=== PATIENT | male | born 2000 | race Hispanic/Latino ===

== ENCOUNTER 2021-02-10 02:11 | Emergency (ER) | payer OTHER ==
[~2021-02-10] VITALS: Ht 160 cm; Wt 61.7 kg
== END 2021-02-10 02:23 | disposition home or self-care (01) ==
LOC: ER 02:16
DX: H60.92 Unspecified otitis externa, left ear (principal); E11.9 Type 2 diabetes mellitus without complications
CPT/HCPCS: 99282

== ENCOUNTER 2021-09-16 08:24 | Inpatient (IN) | payer OTHER ==
[2021-09-16] VITALS (22 sets, daily range): BP systolic 84–106; BP diastolic 41–66
[~2021-09-16] VITALS: Ht 160 cm; Wt 61.7 kg
[2021-09-16] MEDS ORDERED: ONDANSETRON HCL INJ 2MG/ML 2ML 2 MG/ML VIAL IV STA (08:57)
[2021-09-16] MEDS ORDERED: SODIUM CHLORIDE 0.9% 1000ML 1,000 ML IV STA ×2 (08:57→09:03)
[2021-09-16 09:16] LABS: BASOPHILS # (AUTO) 0.1 (0.0-0.1); BASOPHILS % 0.3 % (0.0-1.0); EOSINOPHILS % 0.1 % (0.0-6.0); HEMATOCRIT 50.1 % (38.2-49.6); HEMOGLOBIN 16.7 g/dL (14.0-18.0); LYMPHOCYTES # (AUTO) 1.6 (1.0-3.2); LYMPHOCYTES % 8.7 % (18.0-39.1); MEAN CORPUSCULAR HEMOGLOBIN 29.7 pg (28-32); MEAN CORPUSCULAR HGB CONC 33.3 g/dL (31-35); MONOCYTES # (AUTO) 0.9 (0.2-0.8); MONOCYTES % 4.9 % (4.4-11.3); NEUTROPHILS # (AUTO) 15.3 (2.1-6.9); NEUTROPHILS % 84.9 % (38.7-80.0); PLATELET COUNT 271 x10e3/uL (140-360); RED BLOOD COUNT 5.63 x10e6/uL (4.3-5.7)
[2021-09-16 09:36] LABS: ALBUMIN 4.6 g/dL (3.5-5.0); ALBUMIN/GLOBULIN RATIO 1.1 (0.8-2.0); ANION GAP 30.8 mmol/L (8-16); CALCIUM 10.1 mg/dL (8.4-10.2); CREATININE, SERUM 1.25 mg/dL (0.72-1.25); MAGNESIUM 2.1 MG/DL (1.3-2.1); POTASSIUM 4.8 mmol/L (3.5-5.1)
[2021-09-16] MEDS ORDERED: POTASSIUM CHLORIDE 20MEQ/100ML 200 ML IV PRN (10:00)
[2021-09-16] MEDS ORDERED: MAGNESIUM SULF 1GRAM/DEXTROSE 100 ML IV PRN (10:00)
[2021-09-16] MEDS ORDERED: INSULIN REGULAR, HUMAN 3ML VL 100 UNIT in SODIUM CHLORIDE 0.9% 99 ML IV SCH ×2 (10:00)
[2021-09-16] MEDS ORDERED: INSULIN REGULAR, HUMAN 100 UNIT/1 ML IV ONE (10:00)
[2021-09-16] MEDS ORDERED: DEXTROSE 5%/0.45% SOD CHL 1,000 ML IV SCH (10:00)
[2021-09-16 10:03] LABS: CREATINE KINASE 57 IU/L (30-200)
[2021-09-16 10:19] LABS: CLARITY,URINE CLEAR (CLEAR); COLOR,URINE YELLOW (YELLOW); KETONES,URINE 2+ (NEGATIVE); LEUKOCYTE ESTERASE ,URINE NEGATIVE (NEGATIVE); NITRITE,URINE NEGATIVE (NEGATIVE); PROTEIN,URINE DIPSTICK 1+ (NEGATIVE); URINE UROBILINOGEN 0.2 mg/dL (0.2 - 1)
[2021-09-16] MEDS ORDERED: ONDANSETRON HCL INJ 2MG/ML 2ML 2 MG/ML VIAL IV PRN ×2 (10:30→12:00)
[2021-09-16 10:35] LABS: ABG PCO2 25 mmHg (35-45); ABG PH 7.08 (7.35-7.45); ABG PO2 126 mmHg (80-105)
[2021-09-16 10:36] LABS: ABG HCO3 8 mmol/L (22-26); ABG TCO2 8
[2021-09-16 10:37] LABS: BACTERIA,URINE RARE /HPF; EPITHELIAL CELLS,URINE RARE /LPF; WBC,URINE (MAN) 0-5 /HPF (0-5)
[2021-09-16 10:46] LABS: AMPHETAMINES SCREEN,URINE NEGATIVE (NEGATIVE); BENZODIAZEPINES SCREEN,URINE NEGATIVE (NEGATIVE); PHENCYCLIDINE SCREEN,URINE NEGATIVE (NEGATIVE)
[2021-09-16] MEDS: SODIUM CHLORIDE 0.9% 1000ML 1,000 ML IV SCH ×3 (10:58→15:38)
[2021-09-16] MEDS ORDERED: ACETAMINOPHEN 325 MG TAB PO PRN (12:00)
[2021-09-16] MEDS ORDERED: SIMETHICONE 80 MG CHEW PO PRN (12:00)
[2021-09-16] MEDS ORDERED: BENZONATATE 100 MG CAP PO PRN (12:00)
[2021-09-16] MEDS ORDERED: HYDRALAZINE HCL 20 MG/ML VIAL IV PRN (12:00)
[2021-09-16] MEDS ORDERED: TRAMADOL HCL 50 MG TAB PO PRN (12:00)
[2021-09-16] MEDS ORDERED: MELATONIN 5 MG TABLET PO PRN (12:00)
[2021-09-16] MEDS ORDERED: DOCUSATE SODIUM 100 MG CAP PO PRN (12:00)
[2021-09-16] MEDS ORDERED: LIDOCAINE 4% PATCH TP PRN (12:00)
[2021-09-16] MEDS ORDERED: ALBUTEROL/IPRATROPIUM 3 ML NEB NEB PRN (12:00)
[2021-09-16] MEDS ORDERED: DEXTROSE 50% SYRINGE 50 ML IV PRN ×2 (12:00→17:45)
[2021-09-16] MEDS ORDERED: DIPHENHYDRAMINE HCL 25 MG CAP PO PRN (12:00)
[2021-09-16] MEDS ORDERED: BASAGLAR K100 UNIT/1 SC (13:56)
[2021-09-16] MEDS ORDERED: NOVOLOG100 UNIT/1 SC (13:56)
[2021-09-16] MEDS ORDERED: BASAGLAR K100 UNIT/1 (13:56)
[2021-09-16 14:17] LABS: ANION GAP 16.1 mmol/L (8-16); CALCIUM 7.6 mg/dL (8.4-10.2); CREATININE, SERUM 0.82 mg/dL (0.72-1.25); MAGNESIUM 1.8 MG/DL (1.3-2.1); POTASSIUM 4.1 mmol/L (3.5-5.1)
[2021-09-16] MEDS: ENOXAPARIN SOD INJ 40 MG/0.4 ML SYR SC SCH (17:27)
[2021-09-16 17:39] LABS: ANION GAP 11.8 mmol/L (8-16); CALCIUM 7.6 mg/dL (8.4-10.2); CREATININE, SERUM 0.8 mg/dL (0.72-1.25); MAGNESIUM 1.7 MG/DL (1.3-2.1); POTASSIUM 3.8 mmol/L (3.5-5.1)
[2021-09-16] MEDS: INSULIN REGULAR, HUMAN 3ML VL 100 UNIT in SODIUM CHLORIDE 0.9% 100 ML IV SCH ×4 (17:50→21:00)
[2021-09-17] VITALS (21 sets, daily range): BP systolic 87–124; BP diastolic 48–78
[2021-09-17] MEDS: INSULIN REGULAR, HUMAN 3ML VL 100 UNIT in SODIUM CHLORIDE 0.9% 100 ML IV SCH ×2 (03:00)
[2021-09-17 04:55] LABS: BASOPHILS % 0.2 % (0.0-1.0); EOSINOPHILS # (AUTO) 0.1 (0.0-0.4); EOSINOPHILS % 1.2 % (0.0-6.0); HEMATOCRIT 39.6 % (38.2-49.6); HEMOGLOBIN 13.4 g/dL (14.0-18.0); LYMPHOCYTES # (AUTO) 3.2 (1.0-3.2); LYMPHOCYTES % 27.2 % (18.0-39.1); MEAN CORPUSCULAR HEMOGLOBIN 29.3 pg (28-32); MEAN CORPUSCULAR HGB CONC 33.8 g/dL (31-35); MEAN CORPUSCULAR VOLUME 86.7 fL (81-99); MONOCYTES # (AUTO) 1.2 (0.2-0.8); MONOCYTES % 9.8 % (4.4-11.3); NEUTROPHILS # (AUTO) 7.3 (2.1-6.9); NEUTROPHILS % 61.2 % (38.7-80.0); PLATELET COUNT 250 x10e3/uL (140-360); RED BLOOD COUNT 4.57 x10e6/uL (4.3-5.7)
[2021-09-17 05:16] LABS: ALBUMIN 3.3 g/dL (3.5-5.0); ALBUMIN/GLOBULIN RATIO 1.1 (0.8-2.0); ANION GAP 9.5 mmol/L (8-16); CALCIUM 10.7 mg/dL (8.4-10.2); CREATININE, SERUM 0.8 mg/dL (0.72-1.25); POTASSIUM 3.5 mmol/L (3.5-5.1)
[2021-09-17 05:50] LABS: CHOL/HDL RATIO 2.7 (3.9-4.7); MAGNESIUM 1.9 MG/DL (1.3-2.1); PHOSPHORUS 2.7 MG/DL (2.3-4.7)
[2021-09-17 06:10] LABS: THYROID STIMULATING HORMONE 2.112 uIU/mL (0.350-4.940)
[2021-09-17] MEDS: PANTOPRAZOLE SOD 40 MG TABEC PO SCH ×2 (07:28→07:30)
[2021-09-17] MEDS: AMOXICILLIN 250 MG CAP PO SCH ×2 (12:10→22:00)
[2021-09-17] MEDS ORDERED: INSULIN LISPRO 100 UNIT/1 ML 3ML VIAL SQ ONE (14:15)
[2021-09-17] MEDS: INSULIN LISPRO 100 UNIT/1 ML 3ML VIAL SQ SCH ×3 (16:03→21:30)
[2021-09-17] MEDS: ENOXAPARIN SOD INJ 40 MG/0.4 ML SYR SC SCH (16:54)
[2021-09-17] MEDS ORDERED: INSULIN LISPRO 100 UNIT/1 ML 3ML VIAL SQ SCH (17:00)
[2021-09-17] MEDS ORDERED: INSULIN GLARGINE 100 UNITS/ML VIAL SQ SCH ×2 (21:00)
[2021-09-18] VITALS (17 sets, daily range): BP systolic 89–117; BP diastolic 49–76
[2021-09-18] MEDS: AMOXICILLIN 250 MG CAP PO SCH ×2 (06:45→14:43)
[2021-09-18] MEDS: PANTOPRAZOLE SOD 40 MG TABEC PO SCH (08:04)
[2021-09-18] MEDS: INSULIN LISPRO 100 UNIT/1 ML 3ML VIAL SQ SCH ×4 (08:05→12:12)
[2021-09-18 12:04] LABS: BASOPHILS % 0.4 % (0.0-1.0); EOSINOPHILS # (AUTO) 0.1 (0.0-0.4); EOSINOPHILS % 1.1 % (0.0-6.0); HEMATOCRIT 43.6 % (38.2-49.6); HEMOGLOBIN 14.9 g/dL (14.0-18.0); LYMPHOCYTES # (AUTO) 1.8 (1.0-3.2); LYMPHOCYTES % 22.4 % (18.0-39.1); MEAN CORPUSCULAR HEMOGLOBIN 29.6 pg (28-32); MEAN CORPUSCULAR HGB CONC 34.2 g/dL (31-35); MEAN CORPUSCULAR VOLUME 86.5 fL (81-99); MONOCYTES # (AUTO) 0.6 (0.2-0.8); MONOCYTES % 7.9 % (4.4-11.3); NEUTROPHILS # (AUTO) 5.4 (2.1-6.9); NEUTROPHILS % 67.9 % (38.7-80.0); PLATELET COUNT 228 x10e3/uL (140-360); RED BLOOD COUNT 5.04 x10e6/uL (4.3-5.7); RED CELL DISTRIBUTION WIDTH 12.2 % (11.7-14.4)
[2021-09-18 12:30] LABS: ANION GAP 11.6 mmol/L (8-16); CALCIUM 8.7 mg/dL (8.4-10.2); CREATININE, SERUM 0.68 mg/dL (0.72-1.25); POTASSIUM 3.6 mmol/L (3.5-5.1)
[2021-09-18] MEDS ORDERED: HUMALOG MI100 UNIT/2 SQ (14:14)
[2021-09-18] MEDS ORDERED: AMOXICILLIN500 MG PO (14:15)
== END 2021-09-18 16:52 | disposition home or self-care (01) | DRG 638 ==
LOC: ER 08:30 → ERHOLD 09:58 → ICU 12:56
PROVIDERS: ADMIT Internal Medicine; ATTEND Internal Medicine
DX: E10.10 Type 1 diabetes mellitus with ketoacidosis without coma (principal); N17.9 Acute kidney failure, unspecified; N39.0 Urinary tract infection, site not specified; E86.0 Dehydration; B95.1 Streptococcus, group B, as the cause of diseases classified elsewhere; Z79.4 Long term (current) use of insulin; T38.3X6A Underdosing of insulin and oral hypoglycemic [antidiabetic] drugs, initial encounter; Z91.128 Patient's intentional underdosing of medication regimen for other reason; Z20.822 Contact with and (suspected) exposure to COVID-19
CPT/HCPCS: 36415; 36600; 71045; 80048; 80053; 80061; 80307; 81001; 82550; 82553; 82805; 82948; 83036; 83605; 83735; 84100; 84443; 84484; 85025; 87040; 87086; 94799; 99284; J1650; J1815; J1817; J2405; J7030; J7050; U0002